=== PATIENT | female | born 1960 ===

== ENCOUNTER → 2018-07-10 | Day surgery (SDC) | payer MEDICAID ==
[2018-07-08 10:04] VITALS: BMI 30.3
[~2018-07-10] MED LIST: Ciprofloxacin 400mg/200ml D5W 400 MG/200 ML BAG IVPB ONE; HYDROmorphone 0.5 mg/0.5 ml ISec IVP PRN; Midazolam 2 MG/2 ML VIAL ONE; Propofol 10 mg/ml Inj (20 ML) ONE
[2018-07-10 14:53] VITALS: RESP 18
[2018-07-10 15:23] VITALS: BP 135/73; PULSE 63; TEMP 97.7; O2SAT 100
--- NOTE | 2018-07-11 08:08 | OP ---
Copied To: Carina Rivera MD Attending MD: Carina Rivera MD PROCEDURE DATE: 07/10/2018 PREOPERATIVE DIAGNOSES: Frequency, hesitancy, and urgent incontinence, question of stricture. POSTOPERATIVE DIAGNOSES: Urethral strictures, overactive bladder. PROCEDURES: Cystoscopy, dilatation. DESCRIPTION OF PROCEDURE: While the patient in lithotomy position, genitalia were prepped and draped in a sterile fashion. Physical exam revealed a small cystocele with severe meatal stenosis. Attempt to pass the scope was unsuccessful because of the severe stenosis. This dilated up to 28. After that, the scope was removed. The bladder to be without any tumor and no stone. Dome within normal limits. Bilateral lateral side normal. Trigone and orifice normal. The bladder neck showed no evidence of any obstruction or any abnormality. After emptying the bladder, the scope was removed. The patient was transferred to the recovery room. Prior to the surgery, the patient was given Cipro 400 mg IV piggyback. BLOOD LOSS: None. ANESTHESIA: Sedation. Carina Rivera MD
== END | disposition home or self-care (01) ==
LOC: C.SDS 10:56
PROVIDERS: ATTEND Specialist
DX: N35.9 Urethral stricture, unspecified (principal); R32 Unspecified urinary incontinence; N32.81 Overactive bladder; N81.11 Cystocele, midline
CPT/HCPCS: 52281; J0744